=== PATIENT | male | born 2000 | race Two or more races ===

== ENCOUNTER 2018-08-28 01:54 | Inpatient (IN) | payer OTHER ==
[~2018-08-28] VITALS: Ht 177.8 cm; Wt 78.2 kg
[2018-08-28 02:19] LABS: HEMATOCRIT 44.9 % (42.0-52.0); HEMOGLOBIN 15.2 g/dl (13.5-17.5); MEAN CORPUSCULAR HEMOGLOBIN 30.5 pg (27.0-33.0); MEAN CORPUSCULAR HGB CONC 33.9 g/dl (32.0-36.5); MEAN CORPUSCULAR VOLUME 90.2 fl (80.0-96.0); PLATELET COUNT, AUTOMATED 215 10^3/uL (150-450); RED BLOOD COUNT 4.98 10^6/uL (4.30-6.10); WHITE BLOOD COUNT 10.3 10^3/uL (4.0-10.0)
[2018-08-28 03:25] LABS: AMPHETAMINES LEVEL URINE NEGATIVE (NEGATIVE); BARBITURATES URINE NEGATIVE (NEGATIVE); BENZODIAZEPINES URINE NEGATIVE (NEGATIVE); CANNABINOIDS URINE NEGATIVE (NEGATIVE); COCAINE METABOLITE URINE NEGATIVE (NEGATIVE); METHADONE URINE NEGATIVE (NEGATIVE); OPIATES URINE NEGATIVE (NEGATIVE); PHENCYCLIDINE URINE NEGATIVE (NEGATIVE)
[2018-08-28 03:31] LABS: ACETAMINOPHEN LEVEL < 2.0 UG/ML (10.0-30.0); ALBUMIN 4.3 GM/DL (3.2-5.2); ALT/SGPT 29 U/L (12-78); BILIRUBIN,DIRECT 0.2 MG/DL (0.0-0.2); BILIRUBIN,TOTAL 0.6 MG/DL (0.2-1.0); BLOOD UREA NITROGEN 19 MG/DL (7-18); CARBON DIOXIDE LEVEL 26 MEQ/L (21-32); CHLORIDE LEVEL 107 MEQ/L (98-107); CREATININE FOR GFR 1.28 MG/DL (0.70-1.30); ETHYL ALCOHOL (ETHANOL) < 0.003 % (0.000-0.010); GLUCOSE, FASTING 99 MG/DL (70-100); SALICYLATE LEVEL < 1.7 MG/DL (5.0-30.0); SODIUM LEVEL 140 MEQ/L (136-145); THYROID STIMULATING HORMONE 0.962 uIU/ML (0.463-3.98); TOTAL PROTEIN 7.9 GM/DL (6.4-8.2)
[2018-08-28] MEDS ORDERED: MOM 30ML SUSPENSION UDC PO PRN (04:00)
[2018-08-28] MEDS ORDERED: ACETAMINOPHEN TAB 650MG DOSE (2X325MG) PO PRN (04:00)
[2018-08-28] MEDS ORDERED: NICOTINE 21MG/24HR 1 EA TRANSDERMAL TD PRN (04:00)
[2018-08-28] MEDS ORDERED: traZODone 50 MG TAB PO PRN (04:00)
[2018-08-28] MEDS ORDERED: MAALOX 30 ML SUSP *UDC PO PRN (04:00)
[2018-08-28 04:44] VITALS: BP 158/82
--- NOTE | 2018-08-28 10:26 | MHHPEPDOC ---
General Legal Status: 9.39 Chief Complaint "Depression and suicidal ideation. 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 He has been in the [employer] for a year and a half, but he went AWOL after that. Apparently he has a daughter who is in [place]. After and [facility] and then stayed there for 7 months ago, which brought about the charges. He feels now that he has failed everyone. Most recently yesterday. His girlfriend. The mother of his daughter stated that she was going to look for somebody better. He feels he failed his daughter and his parents. He had been planning to get but he had an argument with his girlfriend. He had called his sister and made suicidal statements, feeling he had lost everything and he had put a belt around his neck. He has no previous history of suicidal actions. He is never been before. He has had no medical problems or surgery, but his legal situation as he will be leaving the [employer] he was in long term briefly in [place] when he was pulled over for a traffic violation and then was discovered that he had gone AWOL. He is a member of the [employer] [place] and his family lives at the [facility]. His parents are still alive. His daughter is 1 years old. He has 2 sisters and a brother. One sister has depression. Patient states this is the most depressed. His ever been. His neurological history is negative. He has a high school education. In the [employer]. He is in [address] [place] [address]. He has a history of smoking but denies alcohol or drug use.. Psychiatric Review of Systems Depression (2 or more weeks): depressed mood, feelings of excess/guilt, feelings of worthlesness, suicidal thoughts Tawanna (4 or more days of): denies Psychosis: denies PTSD: denies Anxiety: situational anxiety Past Psychiatric History Previous Psychiatric Diagnosis:. No previous diagnosis. Previous Psychiatric Admissions: No previous admission. Suicide Attempts: No previous suicide attempts. Psychiatric Follow-up:. No psychiatric follow-up. Psychiatric medications:no Medications. Past Medical History Medical Problems No medical difficulties noted Head Injury: No Seizures: No Hospitalizations: No Surgeries: No Family Medical/Psychiatric HX Medical Problems Sister. with depression Psychiatric Disorders: Yes Addiction: No Suicide Attemps/Completions: No Addiction History nicotine Social History Childhood: . Abuse/Trauma:. Current Living Situation: Presently living at [employer] [facility]. Education: High school. Employment: [employer]. Social Support: Family in [place]. Legal:. Patient will be leaving [employer] after having gone AWOL. Marital: Still single. Mental Status Examination General Appearance: appears stated age, hospital scubs/clothing Build: thin Demeanor: withdrawn, guarded Eye Contact: poor Activity: slowed Behavior: cooperative Speech: low in volume Mood: depressed Affect: constricted, flat Thought Process: logical/linear Thought Content (Delusions): none reported Thought Content (Other): guilty Thought Content (Aggressive): none reported Perception (Hallucinations): none reported Perception (Other): none reported Cognition (Impairment of): none reported Cognition(Intelligence Est.): average Oriented: Awake, Alert, Oriented times three Insight: fair Judgment: Fair Psychosis: Denies Diagnoses Adjustment disorder with depressed mood. Relationship difficulties A-FIB/CHADSVASC A-FIB History Current/History of A-Fib/PAF?: No Initial Treatment Plan 1. Patient was admitted on a [9.39] status. 2. Complete history was obtained. 3. With patients permission, family will be contacted and database will be expanded. 4. Patients medication regimen will be reviewed and changed accordingly. 5. Patient will be provided with protected environment. 6. Patient will be treated with individual, group, and milieu therapies. 7. Patient will receive supportive psych-education. 8. Discharge planning will commence immediately. 9. Outpatient follow-up treatment will be strongly recommended. 10. The initial treatment plan will focus initially on: * Depression. * Risk for suicide. * Substance abuse. ESTIMATED LENGTH OF STAY: - DAYS. TIME SPENT COUNSELING AND COORDINATING INITIAL CARE: minutes. Vital Signs Vital Signs Date Time Temp Pulse Resp B/P (MAP) Pulse Ox O2 Delivery O2 Flow Rate FiO2 08/28/18 04:44 97.4 46 18 158/82 (107) 08/28/18 04:10 99 Room Air Laboratory Data 24H Labs Laboratory Tests 2 08/28/18 02:11: Nucleated Red Blood Cells % (auto) 0.0, Anion Gap 7L, Calcium Level 9.0, Aspartate Amino Transf (AST/SGOT) 17, Alanine Aminotransferase (ALT/SGPT) 29, Alkaline Phosphatase 116, Total Bilirubin 0.6, Direct Bilirubin 0.2, Total Protein 7.9, Albumin 4.3, Albumin/Globulin Ratio 1.19, Thyroid Stimulating Hormone (TSH) 0.962, Salicylates Level < 1.7L, Urine Amphetamines Screen NEGATIVE, Urine Benzodiazepines Screen NEGATIVE, Urine Opiates Screen NEGATIVE, Urine Methadone Screen NEGATIVE, Acetaminophen Level < 2.0L, Urine Barbiturates Screen NEGATIVE, Urine Phencyclidine Screen NEGATIVE, Urine Cocaine Metabolite Screen NEGATIVE, Urine Cannabinoids Screen NEGATIVE, Ethyl Alcohol Level < 0.003 CBC/BMP Laboratory Tests 08/28/18 02:11 Red Blood Count 4.98, Mean Corpuscular Volume 90.2, Mean Corpuscular Hemoglobin 30.5, Mean Corpuscular Hemoglobin Concent 33.9, Red Cell Distribution Width 11.9 Medications No Active Prescriptions or Reported Meds Allergies Coded Allergies: No Known Drug Allergies (Verified Allergy, Mild, 08/28/18) ELKE VILLAREAL MD Aug 28, 2018 10:26
[2018-08-28 18:00] VITALS: BP 135/70
--- NOTE | 2018-08-28 20:00 | HPEPDOC ---
[facility] Medical History & Physical Date of Admission Aug 28, 2018 Date of Service: Aug 28, 2018 History and Physical CHIEF COMPLAINT: Management of medical comorbidities HISTORY OF PRESENT ILLNESS: 18-year-old male with no significant past medical history was admitted to the inpatient mental health unit for severe depression. The hospitalist service was consulted for management of any medical issues. At this time, patient denies any complete of fevers, chills, testing, palpitations, abdominal pain, or any nausea/vomiting/diarrhea. SOCIAL HISTORY: Patient denies any alcohol, or illicit drug use. States he smokes 1-2 cigarettes on a daily basis for the past 5 years. ALLERGIES: Please see below. REVIEW OF SYSTEMS: 10 point review of systems negative unless otherwise specified in HPI. HOME MEDICATIONS: Please see below. PHYSICAL EXAMINATION: VITAL SIGNS: As listed below GENERAL APPEARANCE: . Awake, alert, in no acute distress HEENT: . Normocephalic, atraumatic CARDIOVASCULAR: . Normal rate, normal S1, S2 LUNGS: . Clear to auscultation bilaterally ABDOMEN: . Soft, nontender, nondistended EXTREMITIES: . No erythema, no tenderness LABORATORY DATA: See below. MICROBIOLOGY: Please see below. ASSESSMENT: . Severe depression/mental health disorder Management as per psychiatry Thank you for allowing us to participate in the care of this patient. Please do not hesitate to call with any questions. Vital Signs Vital Signs Date Time Temp Pulse Resp B/P (MAP) Pulse Ox O2 Delivery O2 Flow Rate FiO2 08/28/18 18:00 98.6 56 16 135/70 (91) 08/28/18 04:10 99 Room Air Laboratory Data Labs 24H Laboratory Tests 2 08/28/18 02:11: Nucleated Red Blood Cells % (auto) 0.0, Anion Gap 7L, Calcium Level 9.0, Aspartate Amino Transf (AST/SGOT) 17, Alanine Aminotransferase (ALT/SGPT) 29, Alkaline Phosphatase 116, Total Bilirubin 0.6, Direct Bilirubin 0.2, Total Protein 7.9, Albumin 4.3, Albumin/Globulin Ratio 1.19, Thyroid Stimulating Hormone (TSH) 0.962, Salicylates Level < 1.7L, Urine Amphetamines Screen NEGATIVE, Urine Benzodiazepines Screen NEGATIVE, Urine Opiates Screen NEGATIVE, Urine Methadone Screen NEGATIVE, Acetaminophen Level < 2.0L, Urine Barbiturates Screen NEGATIVE, Urine Phencyclidine Screen NEGATIVE, Urine Cocaine Metabolite Screen NEGATIVE, Urine Cannabinoids Screen NEGATIVE, Ethyl Alcohol Level < 0.003 CBC/BMP Laboratory Tests 08/28/18 02:11 Red Blood Count 4.98, Mean Corpuscular Volume 90.2, Mean Corpuscular Hemoglobin 30.5, Mean Corpuscular Hemoglobin Concent 33.9, Red Cell Distribution Width 11.9 Home Medications No Active Prescriptions or Reported Meds Allergies Coded Allergies: No Known Drug Allergies (Verified Allergy, Mild, 08/28/18) RAMEZ HEADLEY MD Aug 28, 2018 20:00
[2018-08-29 06:59] VITALS: BP 128/67
--- NOTE | 2018-08-29 13:35 | MHIPNPDOC ---
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 VITAL SIGNS: See below. NEW TEST RESULTS: . CURRENT MEDICATIONS: See below. MENTAL STATUS EXAMINATION: Patient is a 18-year old male, who is improved mood today. Speech: Is. Normal. Language skills are. No abnormalities. Thought processes including:. Denies hallucinations, delusions, obsessions, compulsions or phobias. Thought content:. No gross abnormalities. Abstract reasoning, and computation:, Able to abstract. Description of associations:. No loose associations. Description of abnormal or psychotic thoughts:. No abnormal psychotic thoughts. Judgment:, Improved. Insight: Improved. Orientation:, Intact 3. Recent and remote memory:. Intact. Attention span and concentration: Intact. Language: As above. Fund of knowledge:, Full. Mood: Improved. Affect: Bright DIAGNOSES: 1.. Adjustment disorder with depressed mood. 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 3., Marital stressors. ASSESSMENT:, 35 MANAGEMENT PLAN: . TIME SPENT: minutes. Vital Signs Vital Signs Date Time Temp Pulse Resp B/P (MAP) Pulse Ox O2 Delivery O2 Flow Rate FiO2 08/29/18 06:59 97.2 48 14 128/67 (87) 08/28/18 04:10 99 Room Air Current Medications Current Medications Acetaminophen (Tylenol Tab) 650 mg Q6HP PRN PO HEADACHE or DISCOMFORT; Start 08/28/18 at 04:00 Al Hydrox/Mg Hydrox/Simethicone (Mylanta) 30 ml Q4HP PRN PO HEARTBU RN/INDIGESTION; Start 08/28/18 at 04:00 Home Med (Med Rec Complete!) ASDIRECTED XX ; Start 08/28/18 at 04:30; Stop 08/28/18 at 04:30; Status DC Magnesium Hydroxide (Milk Of Magnesia) 30 ml DAILYPRN PRN PO CONSTIPATION; Start 08/28/18 at 04:00 Nicotine (Nicoderm Cq 21mg) 1 patch DAILY PRN TD CRAVING; Start 08/28/18 at 04:00 Trazodone HCl (Desyrel) 50 mg QHSP PRN PO INSOMNIA; Start 08/28/18 at 04:00 Allergies Coded Allergies: No Known Drug Allergies (Verified Allergy, Mild, 08/28/18) ELKE VILLAREAL MD Aug 29, 2018 13:35
[2018-08-29 18:00] VITALS: BP 142/67
[2018-08-30 07:00] VITALS: BP 138/59
--- NOTE | 2018-08-30 14:16 | MHIPNPDOC ---
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 Today, he states his mood is improved. VITAL SIGNS: See below. NEW TEST RESULTS: . CURRENT MEDICATIONS: See below. MENTAL STATUS EXAMINATION: Patient is a 18-year old male, who is less depressed today. Speech: Is. No gross disturbances quiet. Language skills are, intact. Thought processes including:. Gross disturbances. Thought content:. No hallucinations, delusions, obsessions, compulsions or phobias. Abstract reasoning, and computation: Able to abstract. Description of associations:. No loose associations. Description of abnormal or psychotic thoughts:. No psychotic thought. Judgment:. Poor. Insight:, Fair. Orientation: Intact 3. Recent and remote memory:. Intact. Attention span and concentration:. No difficulties with attention span. Language: As above. Fund of knowledge:, Full. Mood:, Euthymic. Affect:, Congruent. DIAGNOSES: 1. Adjustment disorder with depressed mood. 2., Stressors of family life. . ASSESSMENT: Patient can be discharged to outpatient care next week MANAGEMENT PLAN: As above. TIME SPENT:, 35 minutes. Vital Signs Vital Signs Date Time Temp Pulse Resp B/P (MAP) Pulse Ox O2 Delivery O2 Flow Rate FiO2 08/30/18 07:00 97.0 62 14 138/59 (85) 08/28/18 04:10 99 Room Air Current Medications Current Medications Acetaminophen (Tylenol Tab) 650 mg Q6HP PRN PO HEADACHE or DISCOMFORT; Start 08/28/18 at 04:00 Al Hydrox/Mg Hydrox/Simethicone (Mylanta) 30 ml Q4HP PRN PO HEARTBURN/INDIGESTION; Start 08/28/18 at 04:00 Home Med (Med Rec Complete!) ASDIRECTED XX ; Start 08/28/18 at 04:30; Stop 08/28/18 at 04:30; Status DC Magnesium Hydroxide (Milk Of Magnesia) 30 ml DAILYPRN PRN PO CONSTIPATION; Start 08/28/18 at 04:00 Nicotine (Nicoderm Cq 21mg) 1 patch DAILY PRN TD CRAVING; Start 08/28/18 at 04 :00 Trazodone HCl (Desyrel) 50 mg QHSP PRN PO INSOMNIA; Start 08/28/18 at 04:00 Allergies Coded Allergies: No Known Drug Allergies (Verified Allergy, Mild, 08/28/18) ELKE VILLAREAL MD Aug 30, 2018 14:16
[2018-08-30 18:39] VITALS: BP 132/60
[2018-08-31 06:51] VITALS: BP 113/57
--- NOTE | 2018-08-31 15:22 | MHIPNPDOC ---
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 NEW TEST RESULTS: None. CURRENT MEDICATIONS: See below. 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 Speech: Is. Normal. Language skills are intact. Thought processes including:. No gross abnormalities. Thought content:. Denies hallucinations, delusions, obsessions, compulsions or phobias. Abstract reasoning, and computation: Able to abstract. Description of associations:. No loose associations. Description of abnormal or psychotic thoughts:. No psychotic thought. Judgment: Improved. Insight:. Fair. Orientation:, Intact 3. Recent and remote memory:. No obvious disturbance. Attention span and concentration:, Intact. Language:, As above. Fund of knowledge:, Full. Mood:, Good. Affect:, Congruent. DIAGNOSES: 1., Major depressive illness. 2., Relationship stressors. 3. Personalities disorder traits. ASSESSMENT: As above MANAGEMENT PLAN:. Consultation with [employer] and observation before discharge. TIME SPENT:, 35 minutes. Vital Signs Vital Signs Date Time Temp Pulse Resp B/P (MAP) Pulse Ox O2 Delivery O2 Flow Rate FiO2 08/31/18 06:51 98.0 46 14 113/57 (75) 08/28/18 04:10 99 Room Air Current Medications Current Medications Acetaminophen (Tylenol Tab) 650 mg Q6HP PRN PO HEADACHE or DISCOMFORT; Start 08/28/18 at 04:00 Al Hydrox/Mg Hydrox/Simethicone (Mylanta) 30 ml Q4HP PRN PO HEARTBURN/INDIGESTION; Start 08/28/18 at 04:00 Home Med (Med Rec Complete!) ASDIRECTED XX ; Start 08/28/18 at 04:30; Stop 08/28/18 at 04:30; Status DC Magnesium Hydroxide (Milk Of Magnesia) 30 ml DAILYPRN PRN PO CONSTIPATION; Start 08/28/18 at 04:00 Nicotine (Nicoderm Cq 21mg) 1 patch DAILY PRN TD CRAVING; Start 08/28/18 at 04:00 Trazodone HCl (Desyrel) 50 mg QHSP PRN PO INSOMNIA; Start 08/28/18 at 04:00 Allergies Coded Allergies: No Known Drug Allergies (Verified Allergy, Mild, 08/28/18) ELKE VILLAREAL MD Aug 31, 2018 15:22
[2018-08-31 18:00] VITALS: BP 134/68
[2018-09-01 06:35] VITALS: BP 151/66
--- NOTE | 2018-09-01 08:02 | MHIPNPDOC ---
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 VITAL SIGNS: See below. NEW TEST RESULTS: None. CURRENT MEDICATIONS: See below. MENTAL STATUS EXAMINATION: Patient is a 18-year old male, who is in good mood and planning to reestablish his relationship with mother of his child. 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 Speech: Is. No abnormalities. Language skills are intact. Thought processes including:. Denies hallucinations, delusions, obsessions, compulsions and phobias. Thought content: Above. Abstract reasoning, and computation:, Able to abstract. Description of associations:. No loose associations. Description of abnormal or psychotic thoughts:. No psychotic thought noted. Judgment: Improved. Insight:. Fair. Orientation:. Oriented 3. Recent and remote memory:, Intact. Attention span and concentration:. No disturbance. Language: As above. Fund of knowledge:, Full. Mood:, Good. Affect:, Congruent. DIAGNOSES: 1.. Adjustment disorder with depressed mood. 2., Stressors of life.. 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 TIME SPENT: 35 minutes. Vital Signs Vital Signs Date Time Temp Pulse Resp B/P (MAP) Pulse Ox O2 Delivery O2 Flow Rate FiO2 09/01/18 06:35 98.2 53 16 151/66 (94) 08/28/18 04:10 99 Room Air Current Medications Current Medications Acetaminophen (Tylenol Tab) 650 mg Q6HP PRN PO HEADACHE or DISCOMFORT; Start 08/28/18 at 04:00 Al Hydrox/Mg Hydrox/Simethicone (Mylanta) 30 ml Q4HP PRN PO HEARTBURN/ INDIGESTION; Start 08/28/18 at 04:00 Home Med (Med Rec Complete!) ASDIRECTED XX ; Start 08/28/18 at 04:30; Stop 08/28/18 at 04:30; Status DC Magnesium Hydroxide (Milk Of Magnesia) 30 ml DAILYPRN PRN PO CONSTIPATION; Start 08/28/18 at 04:00 Nicotine (Nicoderm Cq 21mg) 1 patch DAILY PRN TD CRAVING; Start 08/28/18 at 04:00 Trazodone HCl (Desyrel) 50 mg QHSP PRN PO INSOMNIA; Start 08/28/18 at 04:00 Allergies Coded Allergies: No Known Drug Allergies (Verified Allergy, Mild, 08/28/18) ELKE VILLAREAL MD Sep 01, 2018 08:02
[2018-09-01 18:00] VITALS: BP 125/62
[2018-09-02 06:15] VITALS: BP 142/69
[2018-09-02 18:09] VITALS: BP 141/62
--- NOTE | 2018-09-02 21:21 | MHIPNPDOC ---
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 VITAL SIGNS: See below. NEW TEST RESULTS: None. CURRENT MEDICATIONS: See below. MENTAL STATUS EXAMINATION: Patient is a 18-year old male, who is in good mood and planning to reestablish his relationship with mother of his child. 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 Speech: Normal in rate, tone and volume Language skills are intact. Thought processes including:. Denies hallucinations, delusions, obsessions, compulsions and phobias. Thought content: Above. Abstract reasoning, and computation:, Able to abstract. Description of associations:. No loose associations. Description of abnormal or psychotic thoughts:. No psychotic thought noted. Judgment: Improved. Insight:. Fair. Orientation:. Oriented 3. Recent and remote memory:, Intact. Attention span and concentration:. No disturbance. Language: As above. Fund of knowledge:, Full. Mood:, Good. Affect:, Congruent. DIAGNOSES: 1.. Adjustment disorder with depressed mood. 2., Stressors of life.. ASSESSMENT: The patient reports that he went AWOL because he wanted to establish a relationship with his young baby because he was not present in her life since she lives with the mother in [place]. He wanted her to be able to recognized him and get attached to him. He admits that his personal life takes priority over being in the [employer]. 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 The patient seems to have improved and he wants to know when is he going to be discharged but I need to observe this patient more carefully in order to make a decision to send him back to [place]. MANAGEMENT PLAN: Discharged to [place] with outpatient care. TIME SPENT: 35 minutes. Vital Signs Vital Signs Date Time Temp Pulse Resp B/P (MAP) Pulse Ox O2 Delivery O2 Flow Rate FiO2 09/02/18 18:09 98.9 59 14 141/62 (88) 08/28/18 04:10 99 Room Air Current Medications Current Medications Acetaminophen (Tylenol Tab) 650 mg Q6HP PRN PO HEADACHE or DISCOMFORT; Start 08/28/18 at 04:00 Al Hydrox/Mg Hydrox/Simethicone (Mylanta) 30 ml Q4HP PRN PO HEARTBURN/INDIGESTION; Start 08/28/18 at 04:00 Home Med (Med Rec Complete!) ASDIRECTED XX ; Start 08/28/18 at 04:30; Stop 08/28/18 at 04:30; Status DC Magnesium Hydroxide (Milk Of Magnesia) 30 ml DAILYPRN PRN PO CONSTIPATION; Start 08/28/18 at 04:00 Nicotine (Nicoderm Cq 21mg) 1 patch DAILY PRN TD CRAVING; Start 08/28/18 at 04:00 Trazodone HCl (Desyrel) 50 mg QHSP PRN PO INSOMNIA; Start 08/28/18 at 04:00 Allergies Coded Allergies: No Known Drug Allergies (Verified Allergy, Mild, 08/28/18) ANABELLA MEADE MD Sep 02, 2018 21:21
[2018-09-03 06:37] VITALS: BP 127/58
--- NOTE | 2018-09-03 17:33 | MHIPNPDOC ---
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 VITAL SIGNS: See below. NEW TEST RESULTS: None. CURRENT MEDICATIONS: See below. 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 Thought processes including: Linear, coherent Thought content: Denies SI, denies HI, denies thought delusions, denies AV hallucinations Description of associations:. No loose associations. Description of abnormal or psychotic thoughts:. No psychotic thought noted. Judgment: Improving Insight:. Improving Orientation:. Oriented 3. Recent and remote memory:, Intact. Attention span and concentration:. No disturbance. Language: Good Fund of knowledge:, Full. Mood: Euthymic Affect: constricted DIAGNOSES: 1.. Adjustment disorder with depressed mood. 2., Stressors of life.. ASSESSMENT: The patient says he spoke to his GF yesterday and she told him that she was pretty much over the relationship and he says that he has contemplated the possibility of breaking up because the relationship was already broken but he wants to build a relationship with his daughter and be there for her in the future. He is ready to go back to and move on with his life. MANAGEMENT PLAN: Discharged to [place] with outpatient care. TIME SPENT: 35 minutes. Vital Signs Vital Signs Date Time Temp Pulse Resp B/P (MAP) Pulse Ox O2 Delivery O2 Flow Rate FiO2 09/03/18 06:37 97.8 71 14 127/58 (81) 08/28/18 04:10 99 Room Air Current Medications Current Medications Acetaminophen (Tylenol Tab) 650 mg Q6HP PRN PO HEADACHE or DISCOMFORT; Start 08/28/18 at 04:00 Al Hydrox/Mg Hydrox/Simethicone (Mylanta) 30 ml Q4HP PRN PO HEARTBURN/INDIGESTION; Start 08/28/18 at 04:00 Home Med (Med Rec Complete!) ASDIRECTED XX ; Start 08/28/18 at 04:30; Stop 08/28/18 at 04:30; Status DC Magnesium Hydroxide (Milk Of Magnesia) 30 ml DAILYPRN PRN PO CONSTIPATION; Start 08/28/18 at 04:00 Nicotine (Nicoderm Cq 21mg) 1 patch DAILY PRN TD CRAVING; Start 08/28/18 at 04:00 Trazodone HCl (Desyrel) 50 mg QHSP PRN PO INSOMNIA; Start 08/28/18 at 04:00 Allergies Coded Allergies: No Known Drug Allergies (Verified Allergy, Mild, 08/28/18) ANABELLA MEADE MD Sep 03, 2018 17:33
[2018-09-03 17:49] VITALS: BP 135/66
[2018-09-03 18:00] VITALS: BP 135/66
[2018-09-04 06:39] VITALS: BP 113/52
[2018-09-04] MEDS ORDERED: NICO21PAT TD (10:22)
[2018-09-04] MEDS ORDERED: TRAZ-252 PO (10:22)
--- NOTE | 2018-09-04 13:55 | MHDSPDOC ---
[facility] Discharge Summary Discharge Summary DATE OF ADMISSION: Aug 28, 2018 at 04:00 DATE OF DISCHARGE: Sep 04, 2018 at 11:11 DISCHARGE DIAGNOSES: 1. Unspecified mood disorder, r/o persistent depressive disorder 2. Adjustment disorder with depressed/anxious mood REASON FOR ADMISSION: As per Dr. 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 He has been in the [employer] for a year and a half, but he went AWOL after that. Apparently he has a daughter who is in [place]. After and went to visit his daughter and then stayed there for 7 months ago, which brought about the charges. He feels now that he has failed everyone. Most recently yesterday. His girlfriend. The mother of his daughter stated that she was going to look for somebody better. He feels he failed his daughter and his parents. He had been planning to get but he had an argument with his girlfriend. He had called his sister and made suicidal statements, feeling he had lost everything and he had put a belt around his neck. He has no previous history of suicidal actions. He is never been before. He has had no medical problems or surgery, but his legal situation as he will be leaving the [employer] he was in [facility] in [place] when he was pulled over for a traffic violation and then was discovered that he had gone AWOL. He is a member of the [employer] and his family lives at the [facility]. His parents are still alive. His daughter is 1 years old. He has 2 sisters and a brother. One sister has depression. Patient states this is the most depressed. His ever been. His neurological history is negative. He has a high school education. In the [employer]. He is in [address] [place] [id number]. He has a history of smoking but denies alcohol or drug use." CONSULTANTS INVOLVED: None TREATMENT AND PROGRESS ON THE UNIT : This patient was initially evaluated by this leader writer on 2016 and he presented with constricted affect. He said he was feeling better, that going for groups had been beneficial because he was learning coping skills. Dr. Leos had admitted him and both, patient and psychiatrist had decided he didn't need medications because this recent depressive reaction seemed to be secondary to his most recent problems with his girlfriend and the [employer] for going [employer] for 7 months. the reason he went AWOL, he says is because he went to visit his daughter who is now one year old and he says he prolonged his visit in [place] because he wanted to be part of his daughter's life, to buld a relationship with her, so, he would stay home with [facility], take care of her while his girlfriend went to work. He felt guilty because he was not there before, he felt guilty because he was not able to build a more solid relationship with his GF and he felt guilty with his parents because he is going to be from the [employer] for going [employer]. He felt pretty uh as if he had disgraced everyone. Yesterday his mood was improved and his affect was brighter, was full appropriate, reactive, smiled, not a broad smile, but smiled a few times and he said that he felt better because he was having some closure regarding the problems he had with his girlfriend because they had a conversation 2 days ago and she told him the relationship was over. He said he didn't care, as a matter of fact, now he felt liberated, he knew what he had to do, to move on, to rebuild his life, start from zero and make the best out of his life because he wants to be a good father, to be present in her life and to protect her. He has spoken with his mother about this situation and has asked his mother not to contact his ex girlfriend because he thinks his ex is going to contact his parents and he thinks this problem is his problem and his ex problem, not his parents, so, he doesn't want them to feel burdened by her. Once he gets discharged from the [employer] he wants to go back home, to his parents house, he wants to get a job in there and visit his daughter who lives with his ex girlfriend about 40 miles away from his parents home. While the patient was narrating this, he was not irritable, he was not sad, he was a little anxious but he seemed determined to make his goals happen, especially for his young daughter. He adamantly refused being suicidal, homicidal or psychotic. Patient is hopeful, he is not hopeless or helpless although all of this has had an impact for his self esteem and it has never been too good. For that reason I believe the patient has had persistent Depressive disorder, since he has been insecure, has had low self esteem, low self confidence which has made him prone to feeling depressed at this time when he is having sentimental and job problems. HOSPITAL COURSE: As above DISCHARGE ASSESSMENT: Patient is not homicidal, not suicidal and not psychotic at the time of his discharge. He is future orientated, he wants to clear up his legal situation with the [employer] for having gone AWOL for 7 months and he wants to get a job and be a family man, be a good father, a good son, a good brother. MENTAL STATUS EXAMINATION ON DISCHARGE: Patient is a 18-year old male, dressed in hospital clothes, cooperative, who has been having marital problems and work related problems because he went AWOL for 7 months Speech: Normal in rate, tone and volume Language skills are intact. Thought processes including: Linear, coherent Thought content: Denies SI, denies HI, denies thought delusions, denies AV hallucinations Description of associations:. No loose associations. Description of abnormal or psychotic thoughts:. No psychotic thought noted. Judgment: Improving Insight:. Improving Orientation:. Oriented 3. Recent and remote memory:, Intact. Attention span and concentration:. No disturbance. Language: Good Fund of knowledge:, Full. Mood: Euthymic Affect: constricted MEDICATIONS ON DISCHARGE: Scheduled PRN Nicotine (Nicotine Patch) 21 Mg Patch.td24, 1 PATCH TD DAILY PRN for CRAVING, #7 Trazodone HCl (Trazodone HCl) 50 Mg Tablet, 50 MG PO QHSP PRN for INSOMNIA, #7 PLAN/FOLLOWUP ARRANGEMENTS: Follow Up Care Education Label * Mental Health Appt 1 * Mental Health [facility] * Smoking Cessation [facility] Smoking Cessation * Additional information see attached form The amount of time spent in the coordination of care for this patient was approximately 30 minutes. Vital Signs/I&Os Vital Signs Date Time Temp Pulse Resp B/P (MAP) Pulse Ox O2 Delivery O2 Flow Rate FiO2 09/04/18 06:39 97.6 52 14 113/52 (72) Medications Scheduled PRN Nicotine (Nicotine Patch) 21 Mg Patch.td24, 1 PATCH TD DAILY PRN for CRAVING, #7 Trazodone HCl (Trazodone HCl) 50 Mg Tablet, 50 MG PO QHSP PRN for INSOMNIA, #7 Allergies Coded Allergies: No Known Drug Allergies (Verified Allergy, Mild, 08/28/18) ANABELLA MEADE MD Sep 04, 2018 12:32
== END 2018-09-04 11:11 | disposition home or self-care (01) | DRG 882 ==
LOC: M ED 01:54 → M ED INP 04:00 → M PSY 04:41
PROVIDERS: ADMIT Psychiatry & Neurology Child & Adolescent Psychiatry; ATTEND Psychiatry & Neurology Psychiatry
DX: F43.23 Adjustment disorder with mixed anxiety and depressed mood (principal); F39 Unspecified mood [affective] disorder